=== PATIENT | male | born 1950 | race Caucasian/White ===

== ENCOUNTER 2018-10-11 08:56 | Emergency (ER) | payer MEDICARE, BC, SELFPAY ==
[2018-10-11 08:57] VITALS: BP 162/89; PULSE 55; RESP 16; TEMP 36.8; O2SAT 98; BMI 29.7
--- NOTE | 2018-10-11 09:24 | ED.VISSUMM ---
- ER Visit Summary Date of Service: 10/11/18 Chief Complaint: [] Right parascapular pain while in the shower this morning History of Present Illness: The patient is a 67 M [] went to bed feeling fine woke feeling fine as he was in the shower had a pain to the right parascapular area right at the tip of the scapula, he had no fever no cough no chest pain no trauma no numbness weakness paresthesias he has history of high cholesterol that is well controlled, he has no history of SD PE DVT indicates the pain is worse when he moves his right arm when he bends over to tie his shoe and other type activities he denies chest pain or shortness of breath, he spoke with a relative of his who told him he could be having heart disease and he came to the emergency department, the patient has no history of CAD or heart disease or any cardiovascular issues when he is perfectly still he has no pain it is only when he moves Physical Examination: [] Vital signs are within normal range General, no distress resting comfortably HEENT is generally unremarkable The neck is supple no adenopathy Cardiovascular, regular rate and rhythm Lungs, clear bilateral Abdomen, soft nontender Extremities, no clubbing cyanosis or edema of the back he has a vague pain to the tip of the right scapula he has full range of motion of the right upper extremity but again complains of pain neurovascular function to the upper extremities are normal with normal pulses his musculoskeletal exam is otherwise unremarkable there is no cyanosis clubbing or edema Neurologic, awake alert answering questions appropriately moving all 4 extremities Test Results: [] Emergency Department Course and Treatment: [] Long conversation with the patient given his reported concern screening labs EKG are obtained Treatment Plan: [] Patient screening labs EKG troponin chest x-ray d-dimer all negative on reevaluation resting comfortably explained all the above to him he wants to go home for outpatient management he will return for change in symptoms of health his doctors Disposition: [] Home stable Impression: [] Right parascapular pain This note was generated with [employer] dictation software. It may contain incorrect words, spelling, and punctuation that were not noted in review of the chart prior to signing
--- NOTE | 2018-10-11 09:26 | EKG12_ITS ---
Test Reason : BACK PAIN Blood Pressure : / mmHG Vent. Rate : 051 BPM Atrial Rate : 051 BPM P-R Int : 192 ms QRS Dur : 098 ms QT Int : 448 ms P-R-T Axes : 059 -08 015 degrees QTc Int : 412 ms Sinus bradycardia Otherwise normal ECG Confirmed by DARREL BERGMAN, JACE ([id number]), fan mail editor SAULO SEGOVIA ([id number]) on 10/12/2018 2:20:50 PM Referred By: RAMSEY Confirmed By:JACE ROJO MD
[2018-10-11 09:31] VITALS: BP 130/94; PULSE 74; RESP 16; O2SAT 95
[2018-10-11] MEDS: 0.9% Normal Saline 1,000 ML 150 ML IV (09:45)
[2018-10-11] MEDS: Aspirin 81 MG TAB.CHEW 324 MG PO (09:45)
--- NOTE | 2018-10-11 09:50 | RAD_ITS ---
STUDY: X-RAY CHEST REASON FOR EXAM: Male, 67 years old. Chest pain. TECHNIQUE: Single AP portable view of the chest. COMPARISON: Prior comparison studies are not available for review at this time. FINDINGS: Cardiac monitoring leads are present. The lungs appear hyperexpanded. There is mild prominence of the bronchovascular markings. There is no demonstrated pleural abnormality. There is borderline cardiomegaly. Normal mediastinum and joan. Normal visualized pulmonary arteries. There is atherosclerotic calcification of the aortic arch with tortuosity. There is demineralization of the osseous structures. There are degenerative changes about both shoulders. There is no demonstrated abnormality of the visualized soft tissue structures of the upper abdomen. RAD/Chest 1 View (Portable) IMPRESSION: No radiographic evidence of acute cardiopulmonary disease. Electronically Signed: Naomi Lowe MD at 10:23 EST , Service support ,
[2018-10-11 10:01] LABS: Absolute Lymphocyte Count 2.06 X10^3/ul (0.83-4.51); Basophil# 0.05 X10^3/uL; Basophil% 0.8 % (0-1); Eosinophil# 0.11 X10^3/uL; Eosinophils% 1.7 % (0-5); Hematocrit 46.9 % (40-54); Hemoglobin 16.4 g/dl (13.0-16.5); Lymphocyte # 2.06 X10^3/ul (4.0); Lymphocyte % 30.9 % (19-41); Mean Corpuscular Hgb 30.3 pg (27.0-32.0); Mean Corpuscular Volume 86.5 fL (80-94); Mean Platelet Vol. 9.1 fl (6.2-12.0); Monocyte# 0.44 X10^3/uL; Monocyte% 6.6 % (0-10); Neutrophil # 3.99 X10^3/uL (2.7-7.7); Neutrophil % 59.8 % (47-70); Platelet Count 241 K/mm3 (150-450); RBC Distribution Width CV 13.4 % (11.6-14.6); RBC Distribution Width SD 42.5 fl (35.1-43.9); Red Blood Count 5.42 M/mm3 (4.6-6.2); White Blood Count 6.7 K/mm3 (4.4-11.0)
[2018-10-11 10:03] LABS: POSITIVE COUNT NO; POSITIVE DIFFERENTIAL NO; POSITIVE MORPHOLOGY NO
[2018-10-11 10:12] LABS: D-Dimer Quantitative (DVT/PE) < 0.27 FEU/ug/m (0.27-0.49)
[2018-10-11 10:14] LABS: Anion Gap 6 (5-15); BUN 10 mg/dL (7-18); BUN/Creat Ratio 12.3 RATIO (10-20); Calcium,Total 8.6 mg/dL (8.5-10.1); Chloride 108 mmol/L (98-107); Creatinine, Serum 0.82 mg/dL (0.70-1.30); EST Glomerular Filtration Rate 101 mL/min (>60); Est Glom Filt Rate - Afr Amer 122 mL/min (>60); Glucose 101 mg/dL (74-106); Potassium 3.9 mmol/L (3.5-5.1); Sodium Level 140 mmol/L (136-145)
[2018-10-11 10:29] LABS: BNP,B-Type NATRIURETIC PEPTIDE 5.2 pg/mL (0-100)
--- NOTE | 2018-10-11 11:39 | ED.DEP ---
ED Disposition - Plan for ED Patient: Instructions: ED Spasm Back No Trauma Referrals: Care Physician,No Primary [Primary Care Provider] -
[2018-10-11 11:44] VITALS: BP 137/90; PULSE 77; RESP 16; O2SAT 99
--- NOTE | 2018-10-11 12:42 | NURSING ---
pt very frustrated on wait refused vitals recheck
== END 2018-10-11 12:44 | disposition home or self-care (01) ==
LOC: ED 10:11
PROVIDERS: Emergency Provider Emergency Medicine
DX: M25.511 Pain in right shoulder (principal); E78.00 Pure hypercholesterolemia, unspecified; Z79.899 Other long term (current) drug therapy
CPT/HCPCS: 71045; 80048; 83880; 84484; 85025; 85379; 93005; 96361; 96374; 96375; 99285; J7030; A4216; J2405

== ENCOUNTER 2025-05-11 05:49 | Emergency (ER) | payer MEDICARE, OTHER, SELFPAY ==
[2025-05-11] VITALS (27 sets, daily range): BP systolic 117–170; BP diastolic 71–107; PULSE 47–72; RESP 6–24; TEMP 36.5–36.8; O2SAT 91–100; BMI 29.9
--- NOTE | 2025-05-11 06:00 | EKG12_ITS ---
Test Reason : DYSRHYTHMIA Blood Pressure : */* mmHG Vent. Rate : 46 BPM Atrial Rate : 46 BPM P-R Int : 208 ms QRS Dur : 104 ms QT Int : 514 ms P-R-T Axes : 58 -20 -4 degrees QTcB Int : 449 ms Sinus bradycardia Otherwise normal ECG Confirmed by Walker Hinds ([id number]), subeditor MAYURI MCCULLOUGH ([id number]) on 05/13/2025 7:14:31 AM Referred By: SARAH Confirmed By: Walker Hinds
--- NOTE | 2025-05-11 06:04 | ED.RN ---
The patient reports blurry vision in his right eye only, denies hemianopia.
--- NOTE | 2025-05-11 06:07 | CT_ITS ---
PROCEDURE: CTA HEAD AND NECK W/ CONTRAST 05/11/2025 REASON FOR EXAM: VISION CHANGE TECHNIQUE: Procedure Code: CTCTA.HDNCK Modality: CT Procedure: CTA HEAD AND NECK W/ CONTRAST Multiplanar Sagittal and Coronal images were obtained. CONTRAST: Isovue 370 VOLUME: 100 mL One or more dose reduction techniques were used (e.g., Automated exposure control, adjustment of the mA and/or kV according to patient size, use of iterative reconstruction technique). RADIATION DOSE SUMMARY: CTDlvol: 18.64 mGy DLP: 762 mGycm COMPARISON: None. FINDINGS: Normal bilateral petrous carotid arteries. Mild atheromatous plaques of the right cavernous carotid artery with a normal supraclinoid bifurcation. Mild atheromatous plaques of the left cavernous carotid artery with a normal supraclinoid bifurcation. Normal right A1 segments of the anterior cerebral artery. Normal left A1 segments of the anterior cerebral artery. Normal intact anterior communicating artery (ACOM). Normal bilateral A2 segments of the anterior cerebral arteries. Normal right M1 and M2 segments of the middle cerebral arteries, with a normal M1 bifurcation. Normal left M1 and M2 segments of the middle cerebral arteries, with a normal M1 bifurcation. Normal right posterior communicating artery (PCOM). Normal left posterior communicating artery (PCOM). Normal bilateral vertebral arteries. Normal basilar artery with a normal basilar bifurcation. The visualized bilateral superior cerebellar (SCA) arteries are normal. Normal bilateral P1, P2 and visualized P3 segments of the posterior cerebral arteries. There is no demonstrated aneurysm of the [place]. There is no major vessel occlusion or hemodynamically significant stenosis. Technique: Axial CT angiographic images of the neck. Reformatted coronal and sagittal images. 3D, MIP images. Reconstructed images were reviewed on a different workstation by radiologist. RIGHT CAROTID ARTERIES: Normal right common carotid artery (CCA). Normal right common carotid bulb. Normal origin of the right internal carotid (ICA) artery without a hemodynamically significant stenosis. Normal visualized cervical portion of the right internal carotid artery. Normal origin of the right external carotid artery (ECA). LEFT CAROTID ARTERIES: Normal left common carotid artery (CCA). 20% stenosis of the left common carotid bulb. 20% stenosis of the origin of the left internal carotid (ICA) artery without a hemodynamically significant stenosis. Normal visualized cervical portion of the left internal carotid artery. Normal origin of the left external carotid artery (ECA). VERTEBRAL ARTERIES: Normal bilateral vertebral artery without a hemodynamically significant stenosis. CT/CTA Head AND Neck W/ Contrast IMPRESSION: Atherosclerosis without high-grade stenosis. Reading [facility]
[2025-05-11] MEDS: 0.9% Normal Saline (1000mL) 1,000 ML 999 ML IV (06:12)
[2025-05-11 06:19] LABS: Hematocrit 47.3 % (40-54); Hemoglobin 16.8 g/dL (13.0-16.5); Immature Granulocytes Count 0.040 X10^3/uL (0.0-0.0); Mean Corp Hgb Conc 35.5 g/dL (32-36); Mean Corpuscular Volume 85.8 fL (80-94); Mean Platelet Vol. 8.8 fl (6.2-12.0); NRBC Flagged by Analyzer 0 % (0-5); Platelet Count 253 K/mm3 (150-450); RBC Distribution Width CV 13.0 % (11.6-14.6); RBC Distribution Width SD 40.8 fl (35.1-43.9); Red Blood Count 5.51 M/mm3 (4.6-6.2); White Blood Count 8.4 K/mm3 (4.4-11.0)
[2025-05-11 06:29] LABS: Prothrombin Time (Protime)PT. 12.7 SECONDS (11.7-14.9)
[2025-05-11 06:30] LABS: Partial Thromboplast Time 23.5 Seconds (24.1-36.2)
[2025-05-11 07:07] LABS: Anion Gap 15 (5-15); BUN 13 mg/dL (4-19); BUN/Creat Ratio 16.6 RATIO (10-20); Calcium,Total 9.0 mg/dL (7.6-11.0); Carbon Dioxide 18.8 mmol/L (21.0-32.0); Chloride 105 mmol/L (98-108); Estimated Creatinine Clearance 102.33 ml/min (50-250); Glucose 151 mg/dL (70-99); Magnesium 2.1 mg/dL (1.5-2.2); Potassium 3.6 mmol/L (3.3-5.1)
--- NOTE | 2025-05-11 07:18 | MRI_ITS ---
EXAM: BRAIN W/WO CONTRAST CLINICAL HISTORY: BINOCULAR DIPLOPIA COMPARISON: None. TECHNIQUE: Multiplanar, multisequence MR images of the brain were obtained without gadolinium contrast material. FINDINGS: No intracranial hemorrhage, mass, mass effect, midline shift or pathologic extra- axial fluid collection. No hydrocephalus. Preservation of the perez- white parenchymal differentiation. No areas of restricted diffusion to suggest acute ischemia or infarction. No gradient signal blooming artifacts are identified. No cerebellar tonsillar ectopia. No sellar/suprasellar signal abnormalities. There is increased T2 signal throughout the right inferior orbital fat, coronal image 7-14, axial T2 FLAIR, image 7-9, with postcontrast enhancement, axial T1 fat-sat image 6-11. Left maxillary, bilateral ethmoid, and frontal sinus disease is noted. MRI/Brain W/WO Contrast IMPRESSION: There is increased T2 signal throughout the right inferior orbital fat, coronal image 7-14, axial T2 FLAIR, image 7-9, with postcontrast enhancement, axial T1 fat-sat image 6-11. Left maxillary, bilateral ethmoid, and frontal sinus disease is noted. Critical results were discussed with Dr. Walker by Dr. Zelaya at the time of dictation. Reading Location: [facility]
[2025-05-11 07:21] LABS: Troponin T High Sensitivity 8 ng/L (<=22)
--- NOTE | 2025-05-11 08:04 | EDS_ITS ---
HPI History of Present Illness Chief Complaint: Neuro S/Sx Informant: patient and EMS Narrative Narrative: Patient is a 74-year-old male with past medical history of GERD hypertension and hyperlipidemia. He states that he wakes early each morning to swim. He states he got up this morning as he normally would and was splashing water on his face when he noticed that he was having blurry vision which he felt was mainly in the right eye. He states he wears glasses but denies any need for contacts and he states there is been no recent trauma to the eye. He denies any other potential neurologic deficits such as extremity weakness or paresthesias headache or weakness. He also reports that the blurry vision is mainly out of the right eye but it will resolve if he covers either eye and has monocular vision. He also states symptoms seem to improve some if he looks up. However as he has never had these issues before and there is concern that his vision change could be related to potential stroke he called EMS and was brought in for evaluation [facility] Home Medications ?Medication ?Instructions ?Recorded ?Last Taken ?Type atorvastatin 20 mg tablet 20 mg PO DAILY 10/11/18 03/0 10/27 History hydrochlorothiazide 12.5 mg tablet 12.5 mg PO DAILY Unknown History omeprazole 40 mg capsule,delayed 40 mg PO X1 05/11/25 Unknown History release Allergy/AdvReac Type Severity Reaction Status Date / Time No Known Allergies Allergy Verified 05/11/25 05:51 Social History Smoking Status: Former smoker [facility] ED Constitutional Constitutional ED: Reports sweats; Denies chills or fever(s) Eyes Eyes: Reports blurry vision ENT ENT ED: Denies rhinorrhea or sore throat Cardiovascular Cardiovascular: Denies chest pain, palpitations or racing heartbeat Respiratory/Chest Respiratory/Chest: Denies cough or dyspnea Gastrointestinal Gastrointestinal: Reports nausea; Denies abdominal pain, diarrhea or vomiting Musculoskeletal Musculoskeletal: Denies myalgias or neck pain Integumentary Denies rash Neurologic Neurologic: Denies headache(s), paresthesias or weakness Hematologic/Lymphatic Hematologic/Lymphatic: Denies easy bleeding or easy bruising EXAM Physical Exam Const Vital Signs: 05/11/25 05:52 05/11/25 06:00 05/11/25 06:30 Temperature 97.7 F L Temperature Source Oral Pulse Rate 72 53 L Respiratory Rate 18 19 H Respiratory Effort Normal Non-Labored Respiratory Pattern Normal Blood Pressure 160/91 H 155/94 H Blood Pressure Mean 114 111 Pulse Ox 96 Oxygen Delivery Method Room Air 05/11/25 06:45 05/11/25 06:45 05/11/25 07:00 Temperature Temperature Source Pulse Rate 52 L 53 L 54 L Respiratory Rate 18 21 H 19 H Respiratory Effort Respiratory Pattern Blood Pressure 153/77 H 153/77 H 144/102 H Blood Pressure Mean 102 101 114 Pulse Ox 98 Oxygen Delivery Method Room Air Positive well nourished and well developed General Appearance ED: well developed; Negative for pallor HEENT HEENT Narrative: Normocephalic atraumatic Eyes PERRL and EOMs intact bilaterally Eyes Narrative: Pupils are equal reactive to light and accommodation Extraocular muscles are intact bilaterally No pale macular optic disc No blood and thunder appearance No obvious vitreous hemorrhage noted No scleral injection or scleral icterus present Neck supple Resp normal respiratory effort and clear to auscultation bilaterally Cardio regular rhythm Rate: bradycardia and other Other Details: Bradycardic rate with regular rhythm Radial and carotid pulses are equal and symmetric No carotid bruit noted GI normal to inspection, nondistended, normoactive bowel sounds, non-tender, non- distended and no masses GI Narrative: No voluntary guarding or rigidity or pulsatile mass Auscultation: normoactive bowel sounds Palpation: soft Extremity normal to inspection Neuro oriented x3, CN's II-XII intact bilaterally and no sensory deficits noted Neuro Narrative: GCS of 15 Cranial nerves II through XII are grossly intact without focal neurologic deficit No pronator drift no dysmetria no truncal ataxia No nystagmus noted No strabismus Patient reports binocular diplopia that resolves with monocular vision Sensorium / Orientation: alert Motor Exam: strength 5/5 throughout Psych mental status grossly normal Skin no rashes or lesions noted General Skin Exam: Negative for jaundice or pallor MDM MDM MDM Narrative Medical decision making narrative: Patient arrived to the ER hypertensive but has a past medical history of this. With his report of binocular diplopia there is concern this could be related to a potential neurologic event but he states the vision is blurry not loss/hemianopsia. In order to ensure that the vision changes not related to a acute CVA or acute hemorrhage or mass I did elect to perform a CT/CTA of the head and neck. By physical exam and history there is no corneal abrasion or retained foreign object. As the patient did have diaphoresis and nausea/vomiting upon arrival there was concern this is atypical presentation for dissection or cardiac ischemia. EKG revealed bradycardia but no ischemic changes or dysrhythmia. This correlates with the troponin which was normal at a value of 8. There is no electrolyte abnormality such as hypo-/hyperkalemia or hypomagnesemia. No signs of acute kidney injury. The CT/CTA revealed chronic changes without high-grade stenosis bleed or LVO. There was no sign of dissection noted either. The case was discussed with manager title Dr. Coreas. She recommends obtaining labs screening for temporal arteritis as well as performing an MRI. Based on the description of binocular diplopia that improves with monocular vision and also improves with looking up she feels this is most likely microvascular changes brought upon by his hypertension. If the MRI is negative she feels comfortable with him being discharged and following up with her as an outpatient the next day. At this time as he does not have focal neurologic deficit there is no obvious mass or bleed and there does not appear to be any type of electrolyte abnormality or signs of cardiac event I do feel this is an appropriate plan of care. The patient was informed of this plan and is agreeable to it. At this time his delta troponin and MRI results are still pending and therefore will be signed out to the day physician Dr. Anderson. However plan will be for discharge home assuming delta Trope and further imaging does not reveal any clinically significant findings History & Record Review Discussion w/independent historian: EMS personnel and Patient Lab Data Attestation: I reviewed the patient's lab results. Labs: Laboratory Results - last 24 hr 05/11/25 05/11/25 05:55 05:58 WBC 8.4 RBC 5.51 Hgb 16.8 H Hct 47.3 MCV 85.8 MCH 30.5 MCHC 35.5 RDW Std Deviation 40.8 RDW Coeff of Vince 13.0 Plt Count 253 MPV 8.8 Immature Gran % (Auto) 0.500 Neut % (Auto) 49.2 Lymph % (Auto) 33.3 [place] % (Auto) 11.4 H Eos % (Auto) 4.5 Baso % (Auto) 1.1 H Absolute Neuts (auto) 4.1 Absolute Lymphs (auto) 2.79 Nucleated RBC % 0 ESR 17 PT 12.7 INR 0.9 APTT 23.5 L Sodium 139 Potassium 3.6 Chloride 105 Carbon Dioxide 18.8 L Anion Gap 15 BUN 13 Creatinine 0.79 Estim Creat Clear Calc 102.33 Est GFR (MDRD) Non-Af 94 BUN/Creatinine Ratio 16.6 Glucose 151 H Calcium 9.0 Magnesium 2.1 Troponin T High Sens 8 TSH 0.900 POC Glucose 140 H Radiography Diagnostic Testing: Clinical Impression(s) from Imaging Studies Head/Neck CTA 05/11/25 06:07 IMPRESSION: Atherosclerosis without high-grade stenosis. 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 There is no associated brain bleed or mass and no sign of acute stroke. Please follow-up with Dr. Coreas/ophthalmology for further evaluation. Please call the office today as you should be able to have a follow-up appointment as early as May 12. Continue all your home medication as directed by your doctor and return to the ER should you have any further concerns Print Language: [place] Disposition Disposition: Home, Self Care
[2025-05-11 08:10] LABS: CRP < 3.00 mg/L (0.0-3.0)
[2025-05-11 08:38] LABS: Troponin T High Sens 2 HR 15 ng/L (<=22)
[2025-05-11 11:33] LABS: Troponin T High Sens 4 HR 11 ng/L (<=22)
== END 2025-05-11 12:51 | disposition home or self-care (01) ==
PROVIDERS: Emergency Medicine; Emergency Provider Emergency Medicine; Visit Provider Emergency Medicine
DX: H53.30 Unspecified disorder of binocular vision (principal); R11.2 Nausea with vomiting, unspecified; I10 Essential (primary) hypertension; H53.2 Diplopia; Z87.891 Personal history of nicotine dependence; E78.5 Hyperlipidemia, unspecified; K21.9 Gastro-esophageal reflux disease without esophagitis; Z79.899 Other long term (current) drug therapy
CPT/HCPCS: 70496; 70498; 70553; 80048; 82962; 83735; 84443; 84484; 85025; 85610; 85652; 85730; 86140; 93005; 96361; 96374; 96375; 99285; Q9967; A4216; J2405